=== PATIENT | female | born 1980 | race Two or more races ===

== ENCOUNTER 2017-11-05 12:30 | Emergency (ER) | payer OTHER, MEDICAID ==
[~2017-11-05] VITALS: Ht 167.6 cm; Wt 90.7 kg
--- NOTE | 2017-11-05 13:12 | Emergency Room Report ---
History of Present Illness General Chief Complaint: General Complaint Source: Patient Present Illness HPI 37 yo female patient reports to ER with complaints of Bartholin cyst. Patient reports history of Bartholin cyst and states "this is that". Patient reports using sitz bath with no relief of symptoms. Patient denies taking medication for relief of pain. Patient complains of pain with walking Patient reports no drainage from abscess. Patient denies fever, chest pain, vaginal discharge, hematuria. Allergies: Coded Allergies: No Known Allergies (Unverified , 11/05/17) Patient History Past Medical History: see triage record Last Menstrual Period: 09/2017 Reviewed Nursing Documentation: PMH: Agreed, PSxH: Agreed Nursing Documentation-PMH Past Medical History: No History, Except For Review of Systems All Other Systems: negative except mentioned in HPI Physical Exam Vital Signs Date Time Temp Pulse Resp B/P (MAP) Pulse Ox O2 Delivery O2 Flow Rate FiO2 11/05/17 12:38 98.1 104 18 103/71 99 Room Air Sp02 EP Interpretation: reviewed, normal General Appearance: no apparent distress, alert, GCS 15, non-toxic Head: normocephalic, atraumatic Eyes: bilateral eye normal inspection, bilateral eye PERRL ENT: hearing grossly normal, normal pharynx, no angioedema, normal voice Neck: full range of motion, supple/symm/no masses Respiratory: chest non-tender, lungs clear, normal breath sounds, speaking full sentences Cardiovascular #1: regular rate, rhythm Gastrointestinal: normal bowel sounds, non tender, soft, non-distended, no guarding, no rebound Genitourinary: other - left bartholin cyst, 3cm, erythematous, fluctant, no drainage, TTP, no surrounding cellulitis Musculoskeletal: back normal, digits/nails normal, gait/station normal, normal range of motion, non-tender, no calf tenderness Neurologic: alert, oriented x3, responsive, motor strength/tone normal, sensory intact, speech normal Psychiatric: mood/affect normal Skin: normal color, no rash, warm/dry, well hydrated Procedures Incision and Drainage Incision and Drainage : Consent: Verbal Site: Left Bartholin Cyst Blade Size: 11 I & D Procedure: betadine prep, sterile dressing applied, gauze wick placed Wound Location: pelvis Wound's Depth, Shape: superficial Wound Length (cm): 3 Wound Explored: contaminated Irrigated w/ Saline (ccs): 1 Anesthesia: 1% Lidocaine Volume Anesthetic (ccs): 1 Splint Applied?: No Patient Tolerated: Well Complications: None Medical Decision Making PA Attestation Dr. Saha is my supervising Physician whom patient management has been discussed with. Diagnostic Impression: Primary Impression: Bartholin's gland abscess ER Course Pt. presents to the ED c/o Bartholin gland abscess. Ddx considered but are not limited to Bartholin cyst abscess, cellulitis, abscess, sebaceous cyst, carbuncle, folliculitis. Vital signs: are WNL, pt. is afebrile ORDERS: Lidocaine ER COURSE: Toradol for pain Local block performed with lidocaine. I&D of abscess performed. Wound packed with iodoform gauze packing Sterile dressing applied to wound following procedure. Procedure performed under supervision of Dr. Saha. Patient declined placement of word catheter. Patient instructed wound will continue to drain. Patient instructed to follow up with OBGYN for further treatment. Patient informed of treatment plan and agrees to plan. Patient reports feeling "much better" following procedure. Patient resting comfortably, in no acute distress, hemodynamically stable. DISCHARGE: -Rx provided for Ibuprofen At this time pt. is stable for d/c to home. Will provide printed patient care instructions and any necessary prescriptions. Care plan and follow up instructions have been discussed with the patient prior to discharge. Patient instructed to follow-up with primary care provider and OBGYN in 3-5 days for wound recheck. Patient questions asked and answered. ER precautions given. Patient instructed to return to ER immediately for any new or worsening of symptoms including but not limited to fever, worsening of pain symptoms. Last Vital Signs Date Time Temp Pulse Resp B/P (MAP) Pulse Ox O2 Delivery O2 Flow Rate FiO2 11/05/17 12:38 98.1 104 18 103/71 99 Room Air Disposition: HOME, SELF-CARE Condition: Stable Scripts Ibuprofen* (MOTRIN*) 600 Mg Tablet 600 MG ORAL Q8H Y for For Pain, #30 TAB 0 Refills Prov: Leobardo Holm 11/05/17 Patient Instructions: Bartholin Cyst or Abscess, [id number] Additional Instructions: Followup with primary care provider in 3 -5 days. Continue to take Stiz baths. Take medication as instructed. Patient questions asked and answered. ER precautions given, patient instructed to return to ER immediately for any new or worsening of symptoms. Leobardo Holm Nov 05, 2017 13:12
[2017-11-05] MEDS ORDERED: Ketorolac 30mg Inj IM ONE (13:15)
[2017-11-05] MEDS ORDERED: IBUPROFEN600 MG ORAL (14:41)
[2017-11-05 15:02] VITALS: BP 110/72
== END 2017-11-05 15:02 | disposition home or self-care (01) ==
LOC: EMR 13:18
DX: N75.0 Cyst of Bartholin's gland (principal)
CPT/HCPCS: 56420; 96372; 99284; J1885; 10060